=== PATIENT | male | born 1980 | race Caucasian/White ===

== ENCOUNTER 2021-04-09 05:35 | Emergency (ER) | payer SELFPAY ==
--- OUTSIDE RECORDS SUMMARY | 2021-04-09 05:38 | XMS REPORT | Continuity of Care Document ---
:1980 Author Organization [facility] t Address [address] [place] [address] [address] [place] [address] Care Team Providers Name Role Phone Yusuf OLGUIN Attending Clinician Unavailable Payers Payer Name Policy Type Policy Number Effective Date Expiration Date S ource Problems This patient has no known problems. Allergies, Adverse Reactions, Alerts This patient has no known allergies or adverse reactions. Medications This patient has no known medications. Procedures This patient has no known procedures. Encounters Start End Encounter Admission Attending Care Care Encounter Source Date/Time Date/Time Type Type Clinicians Facility Department ID 2021-03-24 2021-03-25 Emergency [facility] [id number] [address] 17:12:00 00:47:00 [employer] Results This patient has no known results.
[2021-04-09] MEDS ORDERED: METHYLPREDNISOLONE 125 MG INJ ONE (06:06)
[2021-04-09] MEDS ORDERED: IPRATROPIUM BROM 0.5MG/2.5ML ONE (06:07)
[2021-04-09] MEDS ORDERED: ALBUTEROL 2.5 MG/3 ML NEB SOL ONE ×2 (06:07→06:08)
--- NOTE | 2021-04-09 06:53 | ER ---
Nurse's Notes [facility] Name: Moises Hightower Age: 40 yrs Sex: Male : 1980 Arrival Date: 04/09/2021 Time: 05:43 Bed 14 Private MD: Diagnosis: Unspecified asthma with (acute) exacerbation Presentation: 04/09 05:43 Chief complaint: EMS states: Called for patient with asthma attack, took own MDI lp1 inhaler prior to EMS arrival, vitals stable at 137/90, P 82, O2 at 97% on RA; Per EMS, bilateral lower wheezing. Coronavirus screen: At this time, the client does not indicate any symptoms associated with coronavirus-19. Ebola Screen: No symptoms or risks identified at this time. Onset of symptoms was April 09, 2021. 05:43 Method Of Arrival: EMS: [facility] lp1 05:43 Acuity: NICKI 3 lp1 06:00 Initial Sepsis Screen: Does the patient meet any 2 criteria? No. Patient's initial lp1 sepsis screen is negative. Does the patient have a suspected source of infection? No. Patient's initial sepsis screen is negative. Risk Assessment: Do you want to hurt yourself or someone else? Patient reports no desire to harm self or others. Triage Assessment: 06:01 General: Appears in no apparent distress. Behavior is calm, cooperative. Pain: Denies lp1 pain. Neuro: Level of Consciousness is awake, alert, obeys commands. Cardiovascular: Patient's skin is warm and dry. Respiratory: Airway is patent Respiratory effort is even, unlabored, Respiratory pattern is regular, symmetrical, talking in full sentences slight expiratory wheeze to LLL. Derm: Skin is pink, warm \T\ dry. Musculoskeletal: No deficits noted. Historical: - Allergies: 05:58 No Known Allergies; lp1 - Home Meds: 05:58 bupropion HCl 300 mg Oral Tb24 1 tab once daily [Active]; Advair Diskus 500-50 mcg/dose lp1 inhalation dsdv 1 puff 2 times per day [Active]; lisinopril 40 mg Oral tab 1 tab once daily [Active]; hydrochlorothiazide 12.5 mg Oral cap 1 cap once daily [Active]; buspirone 15 mg Oral tab [Active]; trazodone 100 mg Oral tab 1 tab once daily [Active]; - PMHx: 05:58 Asthma; Hypertensive disorder; Anxiety; Depressive disorder; ETOH abuse; lp1 - PSHx: 05:58 Spinal Fusion; lp1 - Immunization history:: Adult Immunizations up to date. - Social history:: Smoking status: Patient denies any tobacco usage or history of. Screenin:00 Abuse screen: Denies threats or abuse. Denies injuries from another. Nutritional lp1 screening: No deficits noted. Tuberculosis screening: No symptoms or risk factors identified. Fall Risk None identified. Vital Signs: 06:00 BP 146 / 94; Pulse 83; Resp 18; Temp 99(O); Pulse Ox 100% on R/A; Weight 90.72 kg (R); lp1 Height 5 ft. 10 in. (177.80 cm); Pain 0/10; 06:45 BP 133 / 86; Pulse 88; Resp 18; Temp 98.4; Pulse Ox 99% on R/A; mr2 06:00 Body Mass Index 28.70 (90.72 kg, 177.80 cm) lp1 ED Course: 05:43 Patient arrived in ED. wm 05:48 Triage completed. lp1 05:58 [facility] kb 05:58 Gurwinder Gutierrez MD is Attending Physician. kb 06:00 Arm band placed on right wrist. lp1 06:01 Patient has correct armband on for positive identification. lp1 06:40 No provider procedures requiring assistance completed. Patient did not have IV access mr2 during this emergency room visit. 06:50 Spike Ramirez RN is Primary Nurse. mr2 Administered Medications: 06:30 Drug: Albuterol 2.5 mg Route: Inhalation; mr2 06:30 Drug: AtroVENT (ipratropium) Aerosol 0.5 mg Route: Inhalation; mr2 06:30 Drug: SOLU-Medrol (methylPREDNISolone sodium succinate) 125 mg Route: IM; Site: left mr2 deltoid; Outcome: 06:52 Discharge ordered by . kb 07:10 Discharged to home ambulatory. mr2 07:10 Condition: stable 07:10 Discharge instructions given to patient, Instructed on discharge instructions, medication usage, Prescriptions given X 1. 07:22 Patient left the ED. mr2 Signatures: Moon Rivera FNP-C FNP-Ckb Lauren Mcbride, RN RN lp1 Delfina Alcantara Mike, RN RN mr2
--- NOTE | 2021-04-09 06:53 | EDPHYS ---
Physician Documentation [facility] Name: Moises Hightower Age: 40 yrs Sex: Male : 1980 Arrival Date: 04/09/2021 Time: 05:43 Bed 14 Private MD: ED Physician Gurwinder Gutierrez HPI: 04/09 06:04 This 40 yrs old Male presents to ER via EMS with complaints of Asthma Exacerbation. kb 06:04 The patient presents to the emergency department with wheezing, Current therapy: kb albuterol inhaler. Onset: The symptoms/episode began/occurred 3 day(s) ago. Modifying factors: The symptoms are alleviated by nothing, the symptoms are aggravated by nothing. Associated signs and symptoms: The patient has no apparent associated signs or symptoms. Severity of symptoms: At their worst the symptoms were mild moderate in the emergency department the symptoms have improved. The patient has not experienced similar symptoms in the past. The patient has not recently seen a physician. Pt reports cold symptoms that started 3 days ago. States he started having wheezing yesterday so he started using his albuterol inhaler. Reports he would normally go to UC or PCP for steroids because he has had asthma since he was 4 and knows that is what he needs at this point, but he is at [facility] right now. States he had an asthma attack around 0200 that was partially relieved by inhaler. . Historical: - Allergies: 05:58 No Known Allergies; lp1 - Home Meds: 05:58 bupropion HCl 300 mg Oral Tb24 1 tab once daily [Active]; Advair Diskus 500-50 mcg/dose lp1 inhalation dsdv 1 puff 2 times per day [Active]; lisinopril 40 mg Oral tab 1 tab once daily [Active]; hydrochlorothiazide 12.5 mg Oral cap 1 cap once daily [Active]; buspirone 15 mg Oral tab [Active]; trazodone 100 mg Oral tab 1 tab once daily [Active]; - PMHx: 05:58 Asthma; Hypertensive disorder; Anxiety; Depressive disorder; ETOH abuse; lp1 - PSHx: 05:58 Spinal Fusion; lp1 - Immunization history:: Adult Immunizations up to date. - Social history:: Smoking status: Patient denies any tobacco usage or history of. ROS: 06:04 Constitutional: Negative for fever, chills, and weight loss. kb 06:04 Respiratory: Positive for cough, shortness of breath, wheezing, Negative for dyspnea on exertion, hemoptysis, orthopnea, pleurisy. 06:04 All other systems are negative. Exam: 06:04 Constitutional: This is a well developed, well nourished patient who is awake, alert, kb and in no acute distress. Head/Face: Normocephalic, atraumatic. ENT: Moist Mucous membranes Cardiovascular: Regular rate and rhythm with a normal S1 and S2. No gallops, murmurs, or rubs. No pulse deficits. Skin: Warm, dry with normal turgor. Normal color. MS/ Extremity: Pulses equal, no cyanosis. Neurovascular intact. Full, normal range of motion. Neuro: Awake and alert, GCS 15, oriented to person, place, time, and situation. Moves all extremities. Normal gait. Psych: Awake, alert, with orientation to person, place and time. Behavior, mood, and affect are within normal limits. 06:04 Respiratory: the patient does not display signs of respiratory distress, Respirations: normal, Breath sounds: wheezing: expiratory that is mild, is heard in the left lower lobe and right lower lobe. Vital Signs: 06:00 BP 146 / 94; Pulse 83; Resp 18; Temp 99(O); Pulse Ox 100% on R/A; Weight 90.72 kg (R); lp1 Height 5 ft. 10 in. (177.80 cm); Pain 0/10; 06:45 BP 133 / 86; Pulse 88; Resp 18; Temp 98.4; Pulse Ox 99% on R/A; mr2 06:00 Body Mass Index 28.70 (90.72 kg, 177.80 cm) lp1 MDM: 06:03 Patient medically screened. kb 06:03 Data reviewed: vital signs, nurses notes. Data interpreted: Pulse oximetry: on room air kb is 100 %. Interpretation: normal. Counseling: I had a detailed discussion with the patient and/or guardian regarding: the historical points, exam findings, and any diagnostic results supporting the discharge/admit diagnosis, the need for outpatient follow up, a family practitioner, to return to the emergency department if symptoms worsen or persist or if there are any questions or concerns that arise at home. Administered Medications: 06:30 Drug: Albuterol 2.5 mg Route: Inhalation; mr2 06:30 Drug: AtroVENT (ipratropium) Aerosol 0.5 mg Route: Inhalation; mr2 06:30 Drug: SOLU-Medrol (methylPREDNISolone sodium succinate) 125 mg Route: IM; Site: left mr2 deltoid; Disposition: 19:10 Co-signature as Attending Physician, Gurwinder Gutierrez MD. 7 Disposition Summary: 04/09/21 06:52 Discharge Ordered Location: Home kb Condition: Stable kb Diagnosis - Unspecified asthma with (acute) exacerbation kb Followup: kb - With: Emergency Department - When: As needed - Reason: Worsening of condition Followup: kb - With: Private Physician - When: 2 - 3 days - Reason: Recheck today's complaints, Continuance of care, Re-evaluation by your physician Discharge Instructions: - Discharge Summary Sheet kb - Asthma, Adult, [id number] kb Forms: - Medication Reconciliation Form kb - Thank You Letter kb - Antibiotic Education kb - Prescription Opioid Use kb Prescriptions: - Prednisone 20 mg Oral Tablet - take 1 tablet by ORAL route once daily for 5 days; 5 tablet; Refills: 0, kb Product Selection Permitted Signatures: Moon Rivera, COACH TOUR DRIVER-C JAJA-Lauren Quintana RN RN lp1 Gurwinder Gutierrez MD MD 7 Spike Ramirez RN RN mr2
[2021-04-09 07:32] VITALS: BP 133/86; TEMP 98.4; O2SAT 99
== END 2021-04-09 07:22 | disposition home or self-care (01) ==
LOC: ER 05:35
DX: J45.901 Unspecified asthma with (acute) exacerbation (principal); I10 Essential (primary) hypertension; F41.8 Other specified anxiety disorders
CPT/HCPCS: 96372; 99284; J2930